=== PATIENT | female | born 1985 | race Caucasian/White ===

== ENCOUNTER → 2018-09-08 | Emergency (ER) | payer OTHER ==
[2018-09-08] MEDS: IBUPROFEN 800 MG TAB PO (19:48)
== END | disposition home or self-care (01) ==
LOC: FTE 17:41
DX: S06.0X0A Concussion without loss of consciousness, initial encounter (principal); S20.212A Contusion of left front wall of thorax, initial encounter; W10.8XXA Fall (on) (from) other stairs and steps, initial encounter; Y92.9 Unspecified place or not applicable
CPT/HCPCS: 70450; 71045; 99284-25